=== PATIENT | female | born 2005 | race Caucasian/White ===

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

== ENCOUNTER 2024-08-04 14:19 | Emergency (ER) | payer BC, MEDICAID ==
--- NOTE | 2024-08-04 14:49 | ED ---
Lower Extremity Injury HPI - General Chief Complaint: Extremity Injury, Lower Stated Complaint: R foot pain Time Seen by Provider: 08/04/24 14:25 Source: patient, RN notes reviewed Mode of arrival: wheelchair Limitations: no limitations - History of Present Illness Initial Comments: 19-year-old female presents emergency department complaint of right foot and ankle pain. Patient states she injured it few days ago while on vacation. Patient states that she rolled, twisted the ankle. Patient states that she has been icing elevated but continues to have pain and bruising. No paresthesias no other complaints. - Related Data Home Medications Medication Instructions Recorded Confirmed norgestimate-ethinyl estradioL 1 tab PO DAILY 10/31/20 10/31/20 [Tri-Estarylla Tablet] Allergies Allergy/AdvReac Type Severity Reaction Status Date / Time No Known Allergies Allergy Verified 08/04/24 14:40 Review of Systems ROS Statement: Those systems with pertinent positive or pertinent negative responses have been documented in the HPI. ROS Other: All systems not noted in ROS Statement are negative. Past Medical History Past Medical History: No Reported History History of Any Multi-Drug Resistant Organisms: None Reported Past Surgical History: No Surgical Hx Reported Past Psychological History: No Psychological Hx Reported Smoking Status: Never smoker Past Alcohol Use History: Rare Past Drug Use History: None Reported General Exam Limitations: no limitations General appearance: alert, in no apparent distress Head exam: Present: atraumatic, normocephalic, normal inspection Eye exam: Present: normal appearance, PERRL, EOMI. Absent: scleral icterus, conjunctival injection, periorbital swelling Respiratory exam: Present: normal lung sounds bilaterally. Absent: respiratory distress, wheezes, rales, rhonchi, stridor Cardiovascular Exam: Present: regular rate, normal rhythm, normal heart sounds. Absent: systolic murmur, diastolic murmur, rubs, gallop, clicks Extremities exam: Present: other (Foot, ankle ecchymosis, tenderness to palpation, neurovascular intact) Neurological exam: Present: alert Skin exam: Present: warm, dry, intact, normal color. Absent: rash Course Vital Signs 08/04/24 14:37 Temperature 98.1 F Pulse Rate 116 H Respiratory 20 Rate Blood Pressure 129/84 O2 Sat by Pulse 99 Oximetry Procedures - Orthopedic Splinting/Casting Injury #1 Side: right Lower Extremity Injury Location: short leg, foot Lower Extremity Immobilizer: posterior splint, synthetic pre-padded splint Other Orthopedic Equipment: crutches Medical Decision Making - Medical Decision Making Was pt. sent in by a medical professional or institution (DONALDO Edouard, [employer]SMIT[employer], urgent care, hospital, or usp...) When possible be specific @ -No Did you speak to anyone other than the patient for history (EMS, parent, family, police, friend...)? What history was obtained from this source @ -No Did you review nursing and triage notes (agree or disagree)? Why? @ -I reviewed and agree with nursing and triage notes Were old charts reviewed (outside hosp., previous admission, EMS record, old EKG, old radiological studies, urgent care reports/EKG's, usp records)? Report findings @ -No old charts were reviewed Differential Diagnosis (chest pain, altered mental status, abdominal pain women, abdominal pain men, vaginal bleeding, weakness, fever, dyspnea, syncope, headache, dizziness, GI bleed, back pain, seizure, CVA, palpatations, mental health, musculoskeletal)? @ -Foot sprain, foot fracture, ankle sprain EKG interpreted by me (3pts min.). @ -[None X-rays interpreted by me (1pt min.). @ -X-ray right ankle no acute fracture X-ray right foot showing fifth metatarsal fracture CT interpreted by me (1pt min.). @ -None done U/S interpreted by me (1pt. min.). @ -None done What testing was considered but not performed or refused? (CT, X-rays, U/S, labs)? Why? @ -None What meds were considered but not given or refused? Why? @ -None Did you discuss the management of the patient with other professionals (professionals i.e. DONALDO Edouard, [employer]SMIT[employer], lab, RT, psych nurse, social work coordinator, electromechanical engineer, teacher, armor officer, manager rn case)? Give summary @ -No Was smoking cessation discussed for >3mins.? @ -No Was critical care preformed (if so, how long)? @ -No Were there social determinants of health that impacted care today? How? (Homelessness, low income, unemployed, alcoholism, drug addiction, transportation, low edu. Level, literacy, decrease access to med. care, group home, rehab)? @ -No Was there de-escalation of care discussed even if they declined (Discuss DNR or withdrawal of care, Hospice)? DNR status @ -No What co-morbidities impacted this encounter? (DM, HTN, Smoking, COPD, CAD, Cancer, CVA, ARF, Chemo, Hep., AIDS, mental health diagnosis, sleep apnea, morbid obesity)? @ -None Was patient admitted / discharged? Hospital course, mention meds given and route, prescriptions, significant lab abnormalities, going to OR and other pertinent info. @ -Discharge patient has 5th metatarsal fracture. Patient was splinted and provided crutches return parameters discussed we discussed nonweightbearing. Undiagnosed new problem with uncertain prognosis? @ -No Drug Therapy requiring intensive monitoring for toxicity (Heparin, Nitro, Insulin, Cardizem)? @ -No Were any procedures done? @ -No Diagnosis/symptom? @ -Right fifth metatarsal fracture Acute, or Chronic, or Acute on Chronic? @ -[Acute Uncomplicated (without systemic symptoms) or Complicated (systemic symptoms)? @ -Uncomplicated Side effects of treatment? @ -No Exacerbation, Progression, or Severe Exacerbation? @ -No Poses a threat to life or bodily function? How? (Chest pain, [place], [place], pneumonia, PE, COPD, DKA, ARF, appy, cholecystitis, CVA, Diverticulitis, Homicidal, Suicidal, threat to staff... and all critical care pts) @ -No Disposition Clinical Impression: Nondisplaced fracture of fifth right metatarsal bone Disposition: HOME SELF-CARE Condition: Stable Instructions (If sedation given, give patient instructions): Foot Fracture in Adults (ED) Additional Instructions: Please return to the Emergency Department if symptoms worsen or any other concerns. Is patient prescribed a controlled substance at d/c from ED?: No Referrals: Serge Darnell DO [STAFF PHYSICIAN] - 1-2 days Effie Vernon [Doctor of Osteopathic Medicine] - 1-2 days Time of Disposition: 15:16
--- NOTE | 2024-08-04 15:12 | XR ---
EXAMINATION TYPE: XR foot complete RT, XR ankle complete RT DATE OF EXAM: 08/04/2024 2:59 PM COMPARISON: None available. CLINICAL INDICATION: Female, 19 years old with history of pain; PHH, pain TECHNIQUE: XR foot complete RT, XR ankle complete RT examined in the AP, oblique, and lateral project ions. FINDINGS: Right ankle: No acute fracture or dislocation. Tibiotalar joint and talar dome are acutely unremarkable. Right ank le soft tissue swelling. No evidence of a radiopaque foreign body. Right foot: Comminuted nondisplaced fracture at the base of the fifth metatarsal. No unexpected radiographic body . IMPRESSION: Comminuted nondisplaced fracture of the base of the fifth metatarsal. [facility], , 08/04/2024 3:10 PM
[2024-08-04] MEDS: ACET/COD 300 MG/30 MG STARTER PACK 6 TAB BTL PO STA (16:08)
[2024-08-04 16:15] VITALS: BP 114/77; PULSE 90; RESP 16; TEMP 98.5
== END 2024-08-04 16:16 | disposition home or self-care (01) ==
LOC: EC 14:19
DX: S92.354A Nondisplaced fracture of fifth metatarsal bone, right foot, initial encounter for closed fracture (principal); X50.1XXA Overexertion from prolonged static or awkward postures, initial encounter
CPT/HCPCS: 29515; 99283

== ENCOUNTER → 2024-08-13 | Outpatient (CLI) | payer BC ==
--- NOTE | 2024-08-13 14:42 | CT ---
EXAMINATION TYPE: CT foot RT wo con DATE OF EXAM: 08/13/2024 COMPARISON: None CLINICAL INDICATION: Female, 19 years old with history of M79.671 PAIN IN RIGHT FOOT S93.321A SUBLUXA TION OF; PHH, Pain and swelling in right foot after twisting it in the sand CT DLP: 315.7 mGycm Automated exposure control for dose reduction was used. FINDINGS: There is a nondisplaced comminuted fracture of the base of the fifth metatarsal. Remaining osseous structures and articulations are normal. There are no soft tissue abnormalities. IMPRESSION: Nondisplaced comminuted fracture of the base of the fifth metatarsal. No other fracture seen. IMPRESSION: [facility], Workstation: [id number], 08/13/2024 2:40 PM
== END | disposition home or self-care (01) ==
LOC: RADCTMAIN 13:03
PROVIDERS: ATTEND Podiatrist
DX: S93.321A Subluxation of tarsometatarsal joint of right foot, initial encounter (principal); S92.354A Nondisplaced fracture of fifth metatarsal bone, right foot, initial encounter for closed fracture